=== PATIENT | female | born 1970 | race African-American/Black ===

== ENCOUNTER 2018-05-09 17:00 | Emergency (ER) | payer OTHER, MEDICAID ==
[~2018-05-09] VITALS: Ht 172.7 cm; Wt 93.0 kg
[2018-05-09 21:47] VITALS: BP 131/74
[2018-05-09] MEDS ORDERED: methylPREDNISolone SOD SUCC 125 MG/2 ML VL IM ONE (22:00)
[2018-05-09] MEDS ORDERED: HYDROcodone-ACET 10/325MG TAB PO ONE (22:00)
== END 2018-05-09 23:03 | disposition home or self-care (01) ==
LOC: ER 17:00
DX: M79.671 Pain in right foot (principal); M25.562 Pain in left knee
CPT/HCPCS: 73080; 73562; 73660; 96372; 99283; J2930